=== PATIENT | female | born 1950 | race Caucasian/White ===

== ENCOUNTER → 2017-02-01 | Outpatient (CLI) | payer MEDICARE, OTHER ==
[~2017-02-01] MED LIST: Ascorbic Acid,Ester- PO; CELEBREX200 MG PO; Ecotrin PO; HYZAAR 100-21 TABLET PO; PRAVACHOL40 MG PO; PREMPRO 0.31 TABLET PO; SENOKOT S,PE1 TABLET PO; THERAGRAN1 TABLET PO; Tums PO; Tylenol Extra Streng PO; Vicodin,Lortab 5/500 PO; Vitamin-E PO
== END | disposition home or self-care (01) ==
LOC: CDC 11:11
DX: I44.4 Left anterior fascicular block (principal); R94.31 Abnormal electrocardiogram [ECG] [EKG]
CPT/HCPCS: 93000

== ENCOUNTER 2017-03-21 08:57 | Day surgery (SDC) | payer OTHER ==
[~2017-03-21] VITALS: Ht 160 cm; Wt 102.0 kg
[~2017-03-21 08:57] MED LIST changes: +BIOTIN 5000MCG PO; +CALTRATE 600 +1 EAC1 PO; +CENTRUM SILVER1 EAC3 PO; +ESTER-C 1,0001 EACH PO; +FENOFIBRATE PO; +LO-DOSE ASPIRIN81 M2 PO; +MELATONIN5 M1 PO; +METFORMIN HCL500 MG PO; +OMEGA-3 1,0001 EAC1 PO; +PRAVACHOL80 MG PO; +TYLENOL PM EX-1 EACH PO
[2017-03-21 09:27] LABS: BASOPHIL COUNT 0.1 K/uL (0-0.1); EOSINOPHIL (%) 1.6 % (0-5); EOSINOPHIL COUNT 0.1 K/uL (0-0.3); HEMATOCRIT 40.5 % (36.0-46.0); IMMATURE GRANULOCYTE (%) 0.4 % (0.0-0.7); INSTRUMENT ABS NEUTROPHIL CT 3.3 K/uL; LYMPHOCYTE COUNT 2.5 K/uL (1.0-2.8); MCH 34.3 PG (29.0-34.0); MCHC 34.3 G/DL (30.0-36.0); MONOCYTE (%) 10.2 % (3-12); MONOCYTE COUNT 0.7 K/uL (0-0.8); NEUTROPHIL (%) 49.6 % (45-76); NEUTROPHIL COUNT 3.3 K/uL (1.8-6.4); PLATELET COUNT 272 K/uL (156-360); RBC DIS.WIDTH-CV 11.9 % (11.8-14.6); RBC DIS.WIDTH-SD 44.1 % (39-53); RED BLOOD COUNT 4.05 M/uL (3.80-5.20); WHITE BLOOD COUNT 6.8 K/uL (4.1-10.2)
[2017-03-21] MEDS ORDERED: COLACE100 MG PO (09:29)
[2017-03-21 09:32] VITALS: BP 141/77
[2017-03-21 09:56] LABS: ALKALINE PHOSPHATASE 77 IU/L (3-129); ANION GAP 10 MEQ/L (2-14); CHLORIDE 106 MEQ/L (99-109); GFR ESTIMATE (CALCULATED) > 59 mL/min/; GLUCOSE 154 mg/dL (70-99); SAMPLE HEMOLYSIS CHECK 0; SAMPLE ICTERIC CHECK 0; SAMPLE LIPEMIA CHECK 0; SODIUM 141 MEQ/L (136-147); TOTAL BILIRUBIN 0.4 MG/DL (0.0-1.0); UREA NITROGEN (BUN) 22 mg/dL (9-23)
[2017-03-21 14:25] LABS: POINT-OF-CARE METER ID UU13113675
[2017-03-21 15:07] VITALS: BP 118/70
[2017-03-21 18:12] LABS: POINT-OF-CARE METER ID UU14208750
[2017-03-21 18:13] VITALS: BP 117/60
[2017-03-21 20:04] VITALS: BP 143/74
[2017-03-21 21:55] LABS: POINT-OF-CARE METER ID UU14208750
[2017-03-21 23:31] VITALS: BP 134/75
[2017-03-22 04:03] VITALS: BP 128/72
[2017-03-22 07:12] LABS: HEMATOCRIT 32.3 % (36.0-46.0); MCH 32.5 PG (29.0-34.0); MCHC 32.5 G/DL (30.0-36.0); MEAN PLAT.VOLUME 11.1 uM^3 (9.5-12.4); PLATELET COUNT 209 K/uL (156-360); RBC DIS.WIDTH-CV 11.9 % (11.8-14.6); RBC DIS.WIDTH-SD 43.9 % (39-53); WHITE BLOOD COUNT 11.3 K/uL (4.1-10.2)
[2017-03-22 07:14] LABS: RED BLOOD COUNT 3.23 M/uL (3.80-5.20)
[2017-03-22 07:30] VITALS: BP 131/59
[2017-03-22 07:54] LABS: POINT-OF-CARE METER ID UU14208750
[2017-03-22 11:50] VITALS: BP 130/58
[2017-03-22] MEDS ORDERED: IBUPROFEN800 MG PO (12:12)
[2017-03-22] MEDS ORDERED: ENDOCET 5-3251 EACH PO (12:12)
[2017-03-22 12:27] LABS: POINT-OF-CARE METER ID UU14162508
[2017-03-22 16:34] LABS: POINT-OF-CARE METER ID UU14208750
== END 2017-03-22 17:03 | disposition home or self-care (01) ==
LOC: SDC 08:57 → 2SOUTH 14:21 → 2EAST 14:21 → 2SOUTH 14:21 → ENRESERV 14:23 → 2EAST 15:00 → SDC 15:08 → 2EAST 03-22 17:03
PROVIDERS: Obstetrics & Gynecology
DX: N81.6 Rectocele (principal); N39.46 Mixed incontinence; N36.41 Hypermobility of urethra; E78.00 Pure hypercholesterolemia, unspecified; E11.9 Type 2 diabetes mellitus without complications; E66.9 Obesity, unspecified; Z68.39 Body mass index [BMI] 39.0-39.9, adult; I10 Essential (primary) hypertension; I44.4 Left anterior fascicular block; Z88.0 Allergy status to penicillin; Z79.82 Long term (current) use of aspirin
CPT/HCPCS: 80053; 82948; 85025; 85027; 86850; 86900; 86901; C1771; G0378; J0690; J1100; J1815; J1885; J2250; J2405; J3010; J7050; J7120